=== PATIENT | male | born 1975 | race Caucasian/White ===

== ENCOUNTER 2017-06-19 07:40 | Day surgery (SDC) | payer BC ==
[~2017-06-19 07:40] MED LIST: CEFAZOLIN 1 GM INJ; GLYCOPYRROLATE 0.4 MG INJ; LIDOCAINE 2% (SDV) 5 ML INJ; NEOSTIGMINE 3 MG/3 ML SYRINGE; PROPOFOL 200 MG INJ; ROCURONIUM 50 MG INJ; morphine 10 MG INJ
[2017-06-19] MEDS ORDERED: CEFAZOLIN 1 GM/50 ML (PMX) 50 ML IVPB (08:30)
[2017-06-19] MEDS ORDERED: SOD CHLORIDE 0.9% 1,000 ML IV (08:30)
[2017-06-19] MEDS ORDERED: OXYCODONE/ACETAMINOPHEN (5/325) TAB PO (10:30)
[2017-06-19] MEDS ORDERED: EPHEDrine SULFATE 50 MG/5 ML SYG IV (10:30)
[2017-06-19] MEDS ORDERED: DIPHENHYDRAMINE 50 MG INJ IV (10:30)
[2017-06-19] MEDS ORDERED: ALBUTEROL 0.083% (NEB) 2.5 MG/3 ML AMP HHN (10:30)
[2017-06-19] MEDS ORDERED: HYDROmorphONE (0.2 MG/ML) 10ML SYG IV ×3 (10:30)
[2017-06-19] MEDS ORDERED: FENTAnyl 50 MCG/ML VIAL IV ×2 (10:30)
[2017-06-19] MEDS ORDERED: LABETALOL HCL 20MG INJ IV (10:30)
[2017-06-19] MEDS ORDERED: hydrALAzine 20 MG INJ IV (10:30)
[2017-06-19] MEDS: POLYMYXIN/BACITRACIN 1L IRRIG (10:57)
[2017-06-19] MEDS: BUPIVACAINE 0.5% (SDV) 30 ML INJ (10:57)
[2017-06-19] MEDS ORDERED: HYDROCODONE/APAP (10/325) TAB PO (11:30)
[2017-06-19] MEDS: KETOROLAC 30 MG INJ IV (11:32)
[2017-06-19] MEDS: FENTAnyl 50 MCG/ML VIAL IV ×2 (11:32→11:42)
[2017-06-19] MEDS: ONDANSETRON 4 MG INJ IV (11:33)
[2017-06-19] MEDS: MEPERIDINE 25 MG INJ IV (11:33)
[2017-06-19] MEDS: OXYCODONE/ACETAMINOPHEN (5/325) TAB PO (12:16)
== END 2017-06-19 13:05 | disposition home or self-care (01) ==
LOC: SDS 07:40
DX: K40.30 Unilateral inguinal hernia, with obstruction, without gangrene, not specified as recurrent (principal)
CPT/HCPCS: 49507